=== PATIENT | male | born 2000 | race Caucasian/White ===

== ENCOUNTER 2025-04-25 01:09 | Emergency (ER) | payer SELFPAY ==
[2025-04-25] MEDS ORDERED: Acetaminophen 500 MG TAB ONE (01:46)
[2025-04-25] MEDS ORDERED: diphenhydrAMINE 50 MG/ML VIAL ONE (01:46)
[2025-04-25 01:55] LABS: #Basophils 0.2 thou/uL (0.0-0.2); #Lymphocytes 2.7 thou/uL (1.20-3.40); #Monocytes 1.3 thou/uL (0.11-0.59); #Neutrophils 11.9 thou/uL (1.40-6.50); %Basophils 1.1 % (0.0-1.0); %Eosinophils 0.1 % (0.0-10.0); %Lymphocytes 16.6 % (21.0-51.0); %Monocytes 7.9 % (0.0-10.0); %Neutrophils 74.3 % (42.0-75.0); Hematocrit 49.9 % (42.0-52.0); Hemoglobin 18.2 g/dL (14.0-18.0); Mean Corpuscular HGB CONC 36.5 g/dL (32.0-36.0); Mean Corpuscular Hemoglobin 28.8 pg (27.0-31.0); Mean Corpuscular Volume 78.7 fl (78.0-98.0); Mean Platelet Volume 7.2 fL (7.4-10.4); Platelet Count 366 10x3/uL (130-400); RBC Distribution Width 10.7 % (11.5-14.5); Red Blood Cell (RBC) Count 6.34 mill/uL (4.70-6.10); White Blood Cell (WBC) Count 16.1 10x3/uL (4.8-10.8)
[2025-04-25] MEDS ORDERED: Bacitracin 1 PK ONE (01:55)
[2025-04-25] MEDS ORDERED: Lorazepam 2 MG/ML VIAL ONE ×2 (01:55→01:58)
[2025-04-25] MEDS ORDERED: Mag-Al 1200 mg/1200 mg/30 ML UDCUP ONE (01:56)
[2025-04-25 02:01] LABS: ALT (SGPT) 34 U/L (Less than 45); AST (SGOT) 36 U/L (11-34); Albumin 5.2 g/dL (3.1-4.5); Alkaline Phosphatase 56 U/L (40-110); Anion Gap 28 mmol/L (10-20); BUN (Urea Nitrogen) 17 mg/dL (8.9-20.6); Bilirubin, Total 0.5 mg/dL (0.3-1.2); Calc. Creatinine Clearance 0 mL/min (70-130); Calcium 10.3 mg/dL (7.8-10.44); Carbon Dioxide 12 mmol/L (22-29); Chloride 104 mmol/L (98-107); Estimated GFR 80; Globulin 3.9 g/dL (2.4-3.5); Glucose 100 mg/dL (70-105); Potassium 3.7 mmol/L (3.5-5.1); Protein, Total 9.1 g/dL (6.0-8.3); Sodium 140 mmol/L (136-145)
[2025-04-25 02:02] LABS: Troponin I 0.023 ng/mL (< 0.028)
[2025-04-25] MEDS ORDERED: Aspirin Chewable 81 MG TAB ONE (02:02)
== END 2025-04-25 02:25 | disposition home or self-care (01) ==
LOC: BURERS 01:09
DX: S80.812A Abrasion, left lower leg, initial encounter (principal); S80.811A Abrasion, right lower leg, initial encounter; E86.0 Dehydration; F41.1 Generalized anxiety disorder; F14.90 Cocaine use, unspecified, uncomplicated; F17.210 Nicotine dependence, cigarettes, uncomplicated; W16.111A Fall into natural body of water striking water surface causing drowning and submersion, initial encounter; Y93.01 Activity, walking, marching and hiking
CPT/HCPCS: 71045; 80053; 84484; 85025; 93005; 94760; 96374; J1200; J2060